=== PATIENT | female | born 1945 | race Hispanic/Latino ===

== ENCOUNTER → 2017-10-05 | Outpatient (CLI) | payer OTHER | END | disposition home or self-care (01) | LOC: RAH 07:20 | PROVIDERS: ATTEND Internal Medicine | DX: R16.1 Splenomegaly, not elsewhere classified (principal); Z90.49 Acquired absence of other specified parts of digestive tract | CPT/HCPCS: 76700 ==

== ENCOUNTER 2021-01-10 22:42 | Emergency (ER) | payer OTHER ==
[2021-01-10 23:19] LABS: BASOPHILS % (AUTO) 0.4 % (0.0-5.0); HEMATOCRIT 29.2 % (36-48); LYMPHOCYTES % (AUTO) 29.9 % (21.0-51.0); MEAN CORPUSCULAR HGB CONC 33.2 g/dL (32.0-36.0); MEAN CORPUSCULAR VOLUME 105.4 fL (79-99); PLATELET COUNT (AUTO) 117 K/uL (130-400); RED BLOOD CELL COUNT(AUTO) 2.77 MIL/uL (4.00-5.50); RED CELL DISTRIBUTION WIDTH 16.3 % (11.0-15.5); WHITE BLOOD COUNT (AUTO) 5.5 K/uL (4.8-10.8)
[2021-01-10 23:32] LABS: CREATININE 1.4 mg/dL (0.5-1.5); POTASSIUM 3.7 mmol/L (3.5-5.1)
[2021-01-10 23:37] LABS: ALBUMIN 2.4 g/dL (3.5-5.0); BILIRUBIN,TOTAL 2.7 mg/dL (0.2-1.0); CRP QUANTITATIVE 56.1 mg/L (0.00-9.0); INR 1.2 (0.85-1.15); PROTHROMBIN TIME 12.9 SEC (9.6-11.6); TOTAL PROTEIN, SERUM 7.4 g/dL (6.0-8.3)
[2021-01-10 23:38] LABS: PARTIAL THROMBOPLASTIN TIME 31.1 SEC (26.3-35.5)
[2021-01-11 00:48] VITALS: BP 147/68
[2021-01-11 00:56] VITALS: BP 138/80
[2021-01-11] MEDS ORDERED: ALBUMIN (HUMAN) 25% 50 ML IV SCH ×2 (01:00→01:30)
[2021-01-11] MEDS: ALBUMIN (HUMAN) 25% 100 ML IV ONE (01:39)
[2021-01-11 02:23] LABS: APPEARANCE BODY FLUID CLEAR (CLEAR); BODY FLUID WBC 28 /cu. mm.; COLOR,BODY FLUID YELLOW (LT YELLOW); SPECIMENTYPE,BODY FLUID ASCITES
[2021-01-11 02:24] LABS: BODY FLUID RBC 99 /cu. mm.
[2021-01-11 02:26] LABS: BF BASOPHIL 0 %; BF EOSINOPHIL 0 %; BF MESOTHELIAL 6 %; BF MONOCYTE 4 %
[2021-01-11 02:27] LABS: BF LYMPHOCYTE 76 %
[2021-01-11 02:30] LABS: TOTAL VOLUME,BODY FLUID 10 mL
[2021-01-11 04:04] VITALS: BP 122/56
== END 2021-01-11 04:54 ==
LOC: EDH 22:42
DX: R18.8 Other ascites (principal); K74.60 Unspecified cirrhosis of liver; R14.0 Abdominal distension (gaseous); E66.01 Morbid (severe) obesity due to excess calories; I10 Essential (primary) hypertension; E11.9 Type 2 diabetes mellitus without complications; K21.9 Gastro-esophageal reflux disease without esophagitis; F32.9 Major depressive disorder, single episode, unspecified; Z90.710 Acquired absence of both cervix and uterus; Z90.49 Acquired absence of other specified parts of digestive tract
CPT/HCPCS: 36415; 49083; 74018; 80053; 83690; 85025; 85610; 85730; 86140; 87071; 87205; 89051; 96365; 99285; C1729; P9046